=== PATIENT | female | born 2000 | race African-American/Black ===

== ENCOUNTER 2021-08-15 09:46 | Inpatient (IN) | payer OTHER, SELFPAY ==
[2021-08-15] VITALS (7 sets, daily range): BP systolic 113–125; BP diastolic 51–67; PULSE 82–91; RESP 18–20; TEMP 37.4–39.6; O2SAT 97–100; BMI 17.6
--- NOTE | ~2021-08-15 | US_ITS ---
EXAMINATION: US ABDOMEN COMPLETE CLINICAL INFORMATION: Right upper quadrant pain.. COMPARISON: CT abdomen 08/15/2021 TECHNIQUE: Real-time imaging of the abdominal viscera. FINDINGS: PANCREAS: The visualized head and body of the pancreas appears unremarkable. Remainder of the pancreas is obscured by bowel gas. ABDOMINAL AORTA: The proximal, mid, and distal segments are normal in caliber. INFERIOR VENA CAVA: Visualized portions are normal. LIVER: Normal. The liver is normal in size. The liver contour is normal. Parenchymal echogenicity is normal. No focal hepatic lesion. There is no intrahepatic biliary duct dilatation seen. GALLBLADDER: Normal. The gallbladder is physiologically distended without evidence of stones, sludge, polyps, wall thickening or pericholecystic fluid. COMMON BILE DUCT: Normal in caliber measuring 0.2 cm in diameter. RIGHT KIDNEY: Normal. No hydronephrosis. No renal calculi or focal parenchymal lesions. The kidney measures 11 cm in maximum dimension. LEFT KIDNEY: Normal. No hydronephrosis. No renal calculi or focal parenchymal lesions. The kidney measures 12 cm in maximum dimension. SPLEEN: Normal. The spleen measures 11.1 cm in maximum dimension. FREE FLUID: None. US/US abdomen complete IMPRESSION: Unremarkable abdominal ultrasound. No acute findings demonstrated by ultrasound.
--- NOTE | ~2021-08-15 | CT_ITS ---
EXAMINATION: CT ABDOMEN AND PELVIS WITHOUT CONTRAST CLINICAL INFORMATION: Right upper and lower quadrant pain, CVA tenderness, nausea and fever COMPARISON: None TECHNIQUE: Multidetector volumetric imaging was performed from the superior aspect of the liver through the pubic symphysis. Sagittal and coronal reformatted images were obtained on the technologist's workstation. This CT examination was performed using dose optimization techniques as appropriate, variously including the following: *Automated exposure control *Adjustment of mA and/or kV according to patient size (this includes techniques or standardized protocols for targeted exams where dose is matched to indication/reason for exam; i.e. extremities or head) *Use of iterative reconstruction technique DLP: 357 mGy-cm FINDINGS: LUNG BASES: The visualized lung bases are clear. There is pectus deformity of the chest. There is a small amount of fluid at the right cardiophrenic angle questionable for a small pericardial effusion or pericardial cyst. LIVER, GALLBLADDER, AND BILIARY TREE: The liver is normal in size, shape, and attenuation. No focal hepatic lesion or biliary ductal dilatation is present. The gallbladder is unremarkable with no evidence of radiopaque gallstones, gallbladder wall thickening, or obvious pericholecystic inflammatory changes. PANCREAS: Unremarkable. SPLEEN: Unremarkable. ADRENAL GLANDS: Unremarkable. KIDNEYS AND URETERS: The kidneys are normal in size, shape, and attenuation. No hydronephrosis, hydroureter, or calculi seen. No perinephric stranding. There are small bilateral pelvic calcifications probably representing calcified phleboliths. BLADDER: Not optimally distended. GASTROINTESTINAL TRACT: The small and large bowel are unremarkable. The cecum is located low in the pelvis. The appendix is not identified with certainty. The stomach is normal. ABDOMINAL WALL: No significant hernia is appreciated. LYMPH NODES: Normal. VASCULAR: Unremarkable. PELVIC VISCERA: There is a small amount of fluid in the pelvis. The uterus and adnexa are unremarkable. OSSEOUS STRUCTURES: Unremarkable. CT/CT abdomen pelvis wo con IMPRESSION: Normal noncontrast appearance of the kidneys. No stone or hydronephrosis is seen. Small amount of fluid in the pelvis. The cecum is located low in the pelvis. The appendix is not identified with certainty. Pectus deformity of the chest and question small pericardial effusion versus pericardial cyst. Fleischner guidelines were followed.
--- NOTE | 2021-08-15 11:08 | ED_ITS ---
HPI - Abdominal Pain General Chief Complaint: Abdominal Pain Stated Complaint: abd pain Time Seen by Provider: 08/15/21 10:30 Source: patient Mode of arrival: ambulatory History of Present Illness HPI narrative: 21-year-old female with no significant past medical history presenting to the ED complaining of right-sided abdominal pain radiating to right flank x5 days. Reports pain is constant with associated nausea and low-grade fever 99.7. Patient was evaluated at [facility] [employer] sent to ED for evaluation. Denies vomiting, diarrhea, dysuria/hematuria, vaginal bleeding/discharge, cough MD elicited complaint: abdominal pain and flank pain Onset (ago): day(s) Related Data Allergies Allergy/AdvReac Type Severity Reaction Status Date / Time No Known Allergies Allergy Verified 08/15/21 10:49 Review of Systems Review of Systems Constitutional: + Fever, No Chills, No Fatigue, No Malaise ENT/Mouth: No Ear Pain, No Nasal Congestion, No sore throat, No Rhinorrhea, No Swallowing Difficulty Eyes: No Eye Pain, No Swelling, No Redness Cardiovascular: No Chest Pain, No SOB, No Dyspnea on Exertion, No Orthopnea, No Edema, No Palpitations Respiratory: No Cough, No Sputum, No Dyspnea Gastrointestinal: + Nausea, No Vomiting, No Diarrhea, No Constipation, + Abdominal pain Genitourinary: No irregular bleeding, No Dysuria, No Urinary Frequency, No Hemat uria, No Urgency, + Flank Pain, No Urinary Flow Changes, No Hesitancy Musculoskeletal: No joint pain, No Myalgias, No Joint Swelling Skin: No Skin Lesions, No rash Neuro: No Weakness, No Dizziness, No Headache Yes all other systems are reviewed and are negative [facility] Past Medical History Attestation statement: The following information was validated with the patient. Social History Social History Alcohol intake: never Patient Tobacco Use Status: Current everyday Tobacco user Use of substances other than those prescribed or required for medical reasons: No Advance Directives: No Advance Directives Information Provided: No Physical Exam ED Vital Signs: Vital Signs - 24 hr 08/15/21 10:45 08/15/21 10:51 08/15/21 11:10 Temperature 99.7 F 103.2 F H Pulse Rate 91 Respiratory Rate 18 Blood Pressure 122/67 Pulse Oximetry 100 08/15/21 11:55 08/15/21 16:10 Temperature 101.7 F H 99.3 F Pulse Rate 89 82 Respiratory Rate 18 18 Blood Pressure 125/67 117/51 L Pulse Oximetry 98 100 BMI result Body Mass Index 17.6 Const General: cooperative, healthy appearing and no acute distress Orientation/consciousness: patient oriented x3 Limitations: no limitations HENMT Head: Yes normal to inspection and Yes atraumatic Ears: hearing grossly normal bilaterally General nose exam: Normal external nose present Face and sinus: Yes normal facial exam Eyes General: appearance normal, both eyes and all related structures EOM: EOMs intact bilaterally Neck Neck: Yes normal visual inspection and Yes no meningeal signs Resp Effort & Inspection: normal respiratory effort and no respiratory distress Auscultation: clear to auscultation bilaterally, no rales, no rhonchi and no wheezes Cardio Rate: regular rate Heart sounds: S1 normal heart sound present and S2 normal heart sound present GI Inspection: Yes normal to inspection Palpation (GI): Soft to palpation, Tenderness to palpation present (GI) in the RLQ and in the RUQ; Negative for with no rebound tenderness, no guarding and not rigid General: Yes CVA tenderness on the right Back/Spine/Pelvis Back: CVA tenderness Skin Rashes: no rashes Wounds: no wounds Neuro General: patient oriented x3, tone normal and no meningeal signs Gait exam (Neuro): Normal gait present Extrem General: Yes normal to inspection Course Course Course Narrative: -1121--patient of increasingly febrile to 103.2 > IV Toradol ordered -1133--leukocytosis of 13.2 with left shift > empiric Zosyn ordered -1507--UA infected CT abdomen pelvis wo con IMPRESSION: Normal noncontrast appearance of the kidneys. No stone or hydronephrosis is seen. Small amount of fluid in the pelvis. The cecum is located low in the pelvis.? The appendix is not identified with certainty. Pectus deformity of the chest and question small pericardial effusion versus pericardial cyst. ? Fleischner guidelines were followed. >> on re-evaluation patient reports mild symptomatic improvement after medications given. Due to heart rate, fever, and UTI patient meets SIRS plan to admit for further management. Likely pyelo MDM - Abdominal Pain MDM Narrative Medical decision making narrative: 21-year-old female with no significant past medical history presenting to the ED complaining of right-sided abdominal pain radiating to right flank x5 days. On exam low-grade temp 99.7 degrees, NAD, abdomen soft with RUQ/RLQ and R CVA tenderness, no rebound or guarding. Concern for cholecystitis/lithiasis vs pancreatitis vs appendicitis vs UTI/pyelo or renal stone. Lower concern for diverticulitis Plan: Labs, UA, , CT abdomen/pelvis, IVF, symptomatic treatment, re- evaluation Differential Diagnosis Differential diagnosis: Likely abdominal pain, acute appendicitis, diverticulitis, gastroenteritis and pancreatitis Medical Records Attestation: I reviewed the patient's medical records. Lab Data Attestation: I reviewed the patient's lab results. Result diagrams: 08/15/21 11:08 08/15/21 11:08 Labs: Lab Results 08/15/21 08/15/21 08/15/21 Range/Units 11:08 11:08 11:08 WBC 13.2 H (4.8-10.8) X10*3/uL RBC 4.30 (4.20-5.50) X10*6/uL Hgb 12.8 (12.0-16.0) g/dl Hct 38.2 (37.0-47.0) % MCV 88.8 (80.0-98.0) fL MCH 29.8 (27.0-33.0) pg MCHC 33.5 (31.0-35.0) g/dl RDW 14.2 (11.0-16.0) % Plt Count 195 (160-400) X10*3/uL MPV 9.1 L (9.4-12.3) fL Immature Gran % (Auto) 0.4 (0.0-0.4) % Neut % (Auto) 87.5 H (45-73) % Lymph % (Auto) 3.9 L (20-40) % Bond % (Auto) 8.0 (2-11) % Eos % (Auto) 0.0 (0-4) % Baso % (Auto) 0.2 (0-2) % Lymph # (Auto) 0.5 L (1.2-4.9) X10*3/uL Bond # (Auto) 1.1 (0.1-1.2) X10*3/uL Eos # (Auto) 0.0 (0.0-0.4) X10*3/uL Baso # (Auto) 0.0 (0.0-0.2) X10*3/uL Abs Immat Gran (auto) 0.05 H (0.00-0.03) X10*3/uL Absolute Neuts (auto) 11.6 H (2.0-8.3) x10*3/uL Absolute Nucleated RBC 0.000 (0.0-0.012) X10*3/uL Nucleated RBC % (auto) 0.0 (0.0-0.2) /100WBC Sodium 136 (135-145) mmol/L Potassium 3.6 (3.3-5.1) mmol/L Chloride 105 (96-108) mmol/L Carbon Dioxide 25 (22-29) mmol/L Anion Gap 10 L (12-20) BUN 9 (9-16) mg/dL Creatinine 0.78 (0.5-1.4) mg/dL Estim Creat Clear Calc 93.9 Estimated GFR > 60 Random Glucose 110 (60-115) mg/dL Lactic Acid 0.8 (0.5-2.0) mmol/L Calcium 9.1 (8.4-10.2) mg/dL Magnesium 1.7 (1.6-2.6) mg/dL Total Bilirubin 0.8 (0.0-1.0) mg/dL Direct Bilirubin 0.3 (0.0-0.5) mg/dL AST 25 (5-31) U/L ALT 17 (0-31) U/L Alkaline Phosphatase 59 (39-117) U/L Total Protein 6.5 (6.5-8.0) g/dL Albumin 3.9 (3.5-5.0) g/dL Lipase 9 (8-78) U/L Urine Color Urine Appearance Urine pH (5.0-8.0) Ur Specific [place] (1.005-1.025) Urine Protein (NEG-TRACE) MG/DL Urine Glucose (UA) (NEG) MG/DL Urine Ketones (NEG) MG/DL Urine Blood (NEG) Urine Nitrite (NEG) Ur Leukocyte Esterase (NEG) Urine RBC (0) /HPF Urine WBC (0-4) /HPF Ur Squamous Epith Cells /LPF Urine Bacteria /LPF Urine Mucus /LPF Urine Test (NEGATIVE) 08/15/21 08/15/21 Range/Units 13:14 13:14 WBC (4.8-10.8) X10*3/uL RBC (4.20-5.50) X10*6/uL Hgb (12.0-16.0) g/dl Hct (37.0-47.0) % MCV (80.0-98.0) fL MCH (27.0-33.0) pg MCHC (31.0-35.0) g/dl RDW (11.0-16.0) % Plt Count (160-400) X10*3/uL MPV (9.4-12.3) fL Immature Gran % (Auto) (0.0-0.4) % Neut % (Auto) (45-73) % Lymph % (Auto) (20-40) % Bond % (Auto) (2-11) % Eos % (Auto) (0-4) % Baso % (Auto) (0-2) % Lymph # (Auto) (1.2-4.9) X10*3/uL Bond # (Auto) (0.1-1.2) X10*3/uL Eos # (Auto) (0.0-0.4) X10*3/uL Baso # (Auto) (0.0-0.2) X10*3/uL Abs Immat Gran (auto) (0.00-0.03) X10*3/uL Absolute Neuts (auto) (2.0-8.3) x10*3/uL Absolute Nucleated RBC (0.0-0.012) X10*3/uL Nucleated RBC % (auto) (0.0-0.2) /100WBC Sodium (135-145) mmol/L Potassium (3.3-5.1) mmol/L Chloride (96-108) mmol/L Carbon Dioxide (22-29) mmol/L Anion Gap (12-20) BUN (9-16) mg/dL Creatinine (0.5-1.4) mg/dL Estim Creat Clear Calc Estimated GFR Random Glucose (60-115) mg/dL Lactic Acid (0.5-2.0) mmol/L Calcium (8.4-10.2) mg/dL Magnesium (1.6-2.6) mg/dL Total Bilirubin (0.0-1.0) mg/dL Direct Bilirubin (0.0-0.5) mg/dL AST (5-31) U/L ALT (0-31) U/L Alkaline Phosphatase (39-117) U/L Total Protein (6.5-8.0) g/dL Albumin (3.5-5.0) g/dL Lipase (8-78) U/L Urine Color YELLOW Urine Appearance HAZY Urine pH 6.0 (5.0-8.0) Ur Specific [place] 1.020 (1.005-1.025) Urine Protein 2+ H (NEG-TRACE) MG/DL Urine Glucose (UA) NEG (NEG) MG/DL Urine Ketones 15 (NEG) MG/DL Urine Blood 2+ H (NEG) Urine Nitrite POS H (NEG) Ur Leukocyte Esterase 3+ H (NEG) Urine RBC 0-2 (0) /HPF Urine WBC TNTC H (0-4) /HPF Ur Squamous Epith Cells TRACE /LPF Urine Bacteria 1+ /LPF Urine Mucus 1+ /LPF Urine Test NEGATIVE (NEGATIVE) Discharge Plan Discharge Clinical Impression: UTI (urinary tract infection), Sepsis Patient Disposition: Admitted As Inpatient
[2021-08-15] MEDS: 0.9 % Sodium Chloride 1,000 ML 999 ML IV ×2 (11:10→16:32)
[2021-08-15] MEDS: ondansetron HCL 4 MG/2 ML VIAL IVPUSH (11:10)
[2021-08-15] MEDS: Famotidine/PF 20 MG/2 ML VIAL IVPUSH (11:10)
--- NOTE | 2021-08-15 11:12 | PC.NURSE ---
abd issoft non tender, moist mm,, temp increasing rapidly. pa aware.
[2021-08-15 11:18] LABS: MANUAL DIFF FLAG NO
[2021-08-15] MEDS: Ketorolac Tromethamine 15 MG/ML VIAL IVPUSH (11:19)
[2021-08-15] MEDS: Magnesium Hydrox/Alum Hydrox 30 ML ORAL.SUSP PO (11:19)
[2021-08-15 11:24] LABS: Basophils Percent Auto 0.2 % (0-2); Hematocrit 38.2 % (37.0-47.0); Hemoglobin 12.8 g/dl (12.0-16.0); Imm Gran Abs Auto 0.05 X10*3/uL (0.00-0.03); Imm Gran Pct Auto 0.4 % (0.0-0.4); Lymphocytes Absolute Auto 0.5 X10*3/uL (1.2-4.9); Lymphocytes Percent Auto 3.9 % (20-40); Mean Corpuscular HGB Conc 33.5 g/dl (31.0-35.0); Mean Corpuscular Hemoglobin 29.8 pg (27.0-33.0); Mean Corpuscular Volume 88.8 fL (80.0-98.0); Mean Platelet Volume 9.1 fL (9.4-12.3); Monocytes Absolute Auto 1.1 X10*3/uL (0.1-1.2); Neutrophils Absolute Auto 11.6 x10*3/uL (2.0-8.3); Neutrophils Percent Auto 87.5 % (45-73); Platelet Count 195 X10*3/uL (160-400); Red Cell Distribution Width 14.2 % (11.0-16.0); White Blood Count 13.2 X10*3/uL (4.8-10.8)
[2021-08-15 11:33] LABS: Lactic Acid 0.8 mmol/L (0.5-2.0)
[2021-08-15 11:37] LABS: Alanine Aminotransferase 17 U/L (0-31); Albumin Level 3.9 g/dL (3.5-5.0); Alkaline Phosphatase 59 U/L (39-117); Anion Gap 10 (12-20); Aspartate Amino Transferase 25 U/L (5-31); Bilirubin Direct 0.3 mg/dL (0.0-0.5); Bilirubin Total 0.8 mg/dL (0.0-1.0); Blood Urea Nitrogen 9 mg/dL (9-16); Calcium 9.1 mg/dL (8.4-10.2); Carbon Dioxide 25 mmol/L (22-29); Chloride 105 mmol/L (96-108); Creatinine Clr Calc Pharmacy 93.9; Estimated Glomerular Filt Rate > 60; Glucose Random 110 mg/dL (60-115); Lipase 9 U/L (8-78); Magnesium 1.7 mg/dL (1.6-2.6); Potassium 3.6 mmol/L (3.3-5.1); Sodium 136 mmol/L (135-145); Total Protein 6.5 g/dL (6.5-8.0)
[2021-08-15] MEDS: Piperacillin Sodium/Tazobactam 3.375 GM in 0.9 % Sodium Chloride 50 ML IV (11:52)
--- NOTE | 2021-08-15 12:00 | PC.NURSE ---
pt reports feeling over all better though pain in flank remains. awaits CT. No active vomiting. no rebound tenderness RLQ
[2021-08-15] MEDS: Acetaminophen 325 MG TABLET 650 MG PO ×2 (12:48→20:50)
[2021-08-15 13:23] LABS: Appearance Urine HAZY; Color Urine YELLOW; Glucose Urine UA NEG (NEG); Leukocyte Esterase Urine 3+ (NEG); Nitrite Urine POS (NEG); UACC Culture Trigger YES; Urine Blood 2+ (NEG); Urine Ketones 15 MG/DL (NEG); Urine Protein 2+ MG/DL (NEG-TRACE)
[2021-08-15 13:25] LABS: UPreg QC Valid YES; Urine Pregnancy NEGATIVE (NEGATIVE)
[2021-08-15 13:39] LABS: Mucus Urine 1+ /LPF; Squamous Epithelial Cell Urine TRACE /LPF; WBC Urine TNTC /HPF (0-4)
[2021-08-15 13:40] LABS: Bacteria Urine 1+ /LPF; RBC Urine 0-2 /HPF (0)
--- NOTE | 2021-08-15 16:37 | PM.IMHP ---
History of Present Illness Date of Service: 08/15/21 Chief Complaint: abd pain 21-year-old woman presented to the ER with complaints of right upper and lower abdominal pain radiating to right flank with associated nausea, fever and chills. She reports her symptoms started on Saturday but worsened on Saturday and Saturday. She denied any recent illness, recent travel, dysuria or hematuria. She has no other significant medical problems. Her urinalysis was positive, hemodynamically stable, white blood cell count of 13.2. Abdominal CT was negative for any acute abnormality however there was a question of possible pericardial effusion. Patient be admitted for further management and treatment of acute pericarditis. Review of Systems Review of Systems: Denies any recent fever chills or decrease in appetite respiratory denies any shortness of breath coverage production cardiovascular Denies chest pain gastrointestinal denies any dysphagia abdominal pain nausea vomiting or diarrhea genitourinary see HPI musculoskeletal see HPI neuropsych denies any weakness or seizures all other systems reviewed are negative [facility] Social History Alcohol intake: never Patient Tobacco Use Status: Current everyday Tobacco user Use of substances other than those prescribed or required for medical reasons: No Advance Directives: No Advance Directives Information Provided: No Meds Allergies Allergy/AdvReac Type Severity Reaction Status Date / Time No Known Allergies Allergy Verified 08/15/21 10:49 Active Medications: Current Medications Sodium Chloride (Ns) 1,000 mls @ 999 mls/hr IV .Q1H1M TEODORO Stop: 08/15/21 16:45 Last Admin: 08/15/21 16:32 Dose: 999 mls/hr Documented by: Pharmacy Consult (Consult Rx Perform Med Rec) 1 each MISCELLANE ONCE PRN PRN Reason: Consult order Physical Exam Vital Signs and Narrative: Vital Signs: Last Vital Signs Temp 99.3 F 08/15/21 16:10 Pulse 82 08/15/21 16:10 Resp 18 08/15/21 16:10 BP 117/51 L 08/15/21 16:10 Pulse Ox 100 08/15/21 16:10 BMI result Body Mass Index 17.6 Appearing in no acute distress head is normocephalic atraumatic eyes pupils are PERRLA sclera is anicteric mouth throat mucous membranes are intact and moist neck is supple no lymphadenopathy, no JVD noted lung sounds are clear to auscultation heart regular rate rhythm, clear S1, S2 positive bowel sounds, abdomen is soft, nontender neuro patient is alert x3, no focal deficits No CVA tenderness Results Labs CBC and Chem 7: 08/15/21 11:08 08/15/21 11:08 Labs: Laboratory Results - last 24 hr 08/15/21 08/15/21 08/15/21 11:08 11:08 11:08 MCV 88.8 MCH 29.8 MCHC 33.5 RDW 14.2 Plt Count 195 MPV 9.1 L Immature Gran % (Auto) 0.4 Neut % (Auto) 87.5 H Lymph % (Auto) 3.9 L [place] % (Auto) 8.0 Eos % (Auto) 0.0 Baso % (Auto) 0.2 Lymph # (Auto) 0.5 L [place] # (Auto) 1.1 Eos # (Auto) 0.0 Baso # (Auto) 0.0 Abs Immat Gran (auto) 0.05 H Absolute Neuts (auto) 11.6 H Absolute Nucleated RBC 0.000 Nucleated RBC % (auto) 0.0 Anion Gap 10 L Estim Creat Clear Calc 93.9 Estimated GFR > 60 Random Glucose 110 Lactic Acid 0.8 Calcium 9.1 Magnesium 1.7 Total Bilirubin 0.8 Direct Bilirubin 0.3 AST 25 ALT 17 Alkaline Phosphatase 59 Total Protein 6.5 Albumin 3.9 Lipase 9 Urine Color Urine Appearance Urine pH Ur Specific [place] Urine Protein Urine Glucose (UA) Urine Ketones Urine Blood Urine Nitrite Ur Leukocyte Esterase Urine RBC Urine WBC Ur Squamous Epith Cells Urine Bacteria Urine Mucus Urine Test 08/15/21 08/15/21 13:14 13:14 MCV MCH MCHC RDW Plt Count MPV Immature Gran % (Auto) Neut % (Auto) Lymph % (Auto) [place] % (Auto) Eos % (Auto) Baso % (Auto) Lymph # (Auto) [place] # (Auto) Eos # (Auto) Baso # (Auto) Abs Immat Gran (auto) Absolute Neuts (auto) Absolute Nucleated RBC Nucleated RBC % (auto) Anion Gap Estim Creat Clear Calc Estimated GFR Random Glucose Lactic Acid Calcium Magnesium Total Bilirubin Direct Bilirubin AST ALT Alkaline Phosphatase Total Protein Albumin Lipase Urine Color YELLOW Urine Appearance HAZY Urine pH 6.0 Ur Specific [place] 1.020 Urine Protein 2+ H Urine Glucose (UA) NEG Urine Ketones 15 Urine Blood 2+ H Urine Nitrite POS H Ur Leukocyte Esterase 3+ H Urine RBC 0-2 Urine WBC TNTC H Ur Squamous Epith Cells TRACE Urine Bacteria 1+ Urine Mucus 1+ Urine Test NEGATIVE Imaging Radiologist's Impressions: Impressions Abdomen/Pelvis CT 08/15/21 14:17 IMPRESSION: Normal noncontrast appearance of the kidneys. No stone or hydronephrosis is seen. Small amount of fluid in the pelvis. The cecum is located low in the pelvis. The appendix is not identified with certainty. Pectus deformity of the chest and question small pericardial effusion versus pericardial cyst. Fleischner guidelines were followed. Assessment and Plan (1) UTI (urinary tract infection): Status: Acute Plan 21-year-old woman admitted with sepsis secondary to pyelonephritis Sepsis secondary to pyelonephritis Start Rocephin Follow blood cultures IV fluids Supportive care No other significant medical problems DVT prophylaxis low risk early ambulation Attending Dr. Morris Full code Quality Stroke Does the patient have a stroke diagnosis?: No VTE Prior VTE?: No VTE Risk Level:: Medical - low VTE Device Contraindication: Treatment Not Indicated VTE Drug Contraindication: Treatment Not Indicated
--- NOTE | 2021-08-15 16:55 | PHA.MEDREC ---
MED REC COMPLETE, NO ISSUE Pharmacy Consult ? Medication Reconciliation Pharmacy has completed the medication reconciliation.
[2021-08-15 17:12] LABS: COVID-19 Test Negative (Negative); IDNOW Serial# 16C4AD1C
[2021-08-15] MEDS: cefTRIAXone sodium 1 GM in 0.9 % Sodium Chloride 50 ML IV (17:59)
[2021-08-15 22:23] LABS: Amphetamine Screen Urine Not Detected (Not Detect); Barbiturates, Urine Not Detected (Not Detect); Benzodiazepines Screen Urine Not Detected (Not Detect); Cannabinoid Screen Urine POSITIVE (Not Detect); Cocaine Screen Urine Not Detected (Not Detect); Fentanyl, urine Not Detected (Not Detect); Opiate Screen Urine Not Detected (Not Detect); Phencyclidine Screen Urine Not Detected (Not Detect)
--- NOTE | 2021-08-15 22:55 | MHC.CM.PN ---
CM met with admitted patient with bed assignment pending. A&Ox4. PCP Perri [facility]. HCP reviewed, completed and signed. Copies given Uploaded into [employer] and [facility] [employer]. HCP/mother Veda Gerber ([phone]). J&J only. No booster. Lives with roommate. Corrected address: [address] [place] [address]. [id number]. Employed. No DME/services. D/C plan: Home without services. Pt will drive herself home.
[2021-08-16] VITALS (9 sets, daily range): BP systolic 102–133; BP diastolic 40–68; PULSE 70–87; RESP 16–20; TEMP 36.6–38.2; O2SAT 98–100
[2021-08-16] MEDS: 0.9 % Sodium Chloride Flush 3 ML SYRINGE IVFLUSH ×2 (04:23→10:13)
[2021-08-16] MEDS: Acetaminophen 325 MG TABLET 650 MG PO ×3 (04:23→16:42)
[2021-08-16 04:59] LABS: MANUAL DIFF FLAG NO
--- NOTE | 2021-08-16 05:05 | PC.NURSE ---
Pt has been lying supine in bed perfectly still, per the directions from this RN post LP. Myself and another staff member were standing outside of the pt's room and overheard the pt self dialoguing, speaking about being in the shower and smelling blood and babies and it stinks, it just stinks . Provider notified. This RN requested something to help the pt get some sleep.
[2021-08-16 05:10] LABS: Basophils Percent Auto 0.1 % (0-2); Hematocrit 34.1 % (37.0-47.0); Hemoglobin 11.7 g/dl (12.0-16.0); Imm Gran Abs Auto 0.08 X10*3/uL (0.00-0.03); Imm Gran Pct Auto 0.5 % (0.0-0.4); Lymphocytes Absolute Auto 0.6 X10*3/uL (1.2-4.9); Lymphocytes Percent Auto 4.1 % (20-40); Mean Corpuscular HGB Conc 34.3 g/dl (31.0-35.0); Mean Corpuscular Hemoglobin 29.8 pg (27.0-33.0); Mean Corpuscular Volume 86.8 fL (80.0-98.0); Mean Platelet Volume 8.7 fL (9.4-12.3); Monocytes Absolute Auto 1.5 X10*3/uL (0.1-1.2); Neutrophils Absolute Auto 12.4 x10*3/uL (2.0-8.3); Neutrophils Percent Auto 85.3 % (45-73); Platelet Count 153 X10*3/uL (160-400); Red Blood Count 3.93 X10*6/uL (4.20-5.50); Red Cell Distribution Width 13.7 % (11.0-16.0); White Blood Count 14.6 X10*3/uL (4.8-10.8)
[2021-08-16 05:24] LABS: Anion Gap 9 (12-20); Blood Urea Nitrogen 7 mg/dL (9-16); Carbon Dioxide 26 mmol/L (22-29); Chloride 104 mmol/L (96-108); Creatinine Clr Calc Pharmacy 95.1; Estimated Glomerular Filt Rate > 60; Glucose Random 130 mg/dL (60-115); Potassium 3.3 mmol/L (3.3-5.1); Sodium 136 mmol/L (135-145)
[2021-08-16 05:51] LABS: Calcium 8.2 mg/dL (8.4-10.2)
[2021-08-16] MEDS: 0.9 % Sodium Chloride 1,000 ML 125 ML IVCONT ×2 (10:12→16:43)
--- NOTE | 2021-08-16 10:16 | PC.NURSE ---
NS started at 125ml/hr. Pain 6/10 on rest per pt. Tmp 100.2, pt encouraged to remove additional blankets. awaits tx to floor
--- NOTE | 2021-08-16 10:24 | PC.NURSE ---
Tylenol given for fever control
--- NOTE | 2021-08-16 13:07 | P.PNIM_ITS ---
Subjective Subjective Date of Service: 08/16/21 <Crista Lan NP - Last Filed: 08/16/21 15:24> 08/23/21 <Bryson Richter MD - Last Filed: 08/23/21 08:29> Review of Systems Follow up pyelonephritis Still with right upper and lower abd pain no nausea or vomiting <Crista Lan NP - Last Filed: 08/16/21 15:24> Physical Exam Vital Signs: Vital Signs: Last Vital Signs Temp 100.1 F 08/16/21 12:00 Pulse 71 08/16/21 12:00 Resp 16 08/16/21 12:00 BP 116/64 08/16/21 12:00 Pulse Ox 99 08/16/21 12:00 BMI result Body Mass Index 17.6 <Crista Lan NP - Last Filed: 08/16/21 15:24> Appearing in no acute distress lung sounds are clear to auscultation heart regular rate rhythm, clear S1, S2 positive bowel sounds, R upper and and lower abd pain neuro patient is alert x3, no focal deficits <Crista Lan NP - Last Filed: 08/16/21 15:24> Objective Data Active Medications Acetaminophen (Acetaminophen 325 Mg Tablet) 650 mg PO Q6H PRN PRN Reason: Pain, Mild (Pain Scale 1-3) Last Admin: 08/16/21 10:23 Dose: 650 mg Documented by: PIPPA Ceftriaxone Sodium 1 gm/ (Sodium Chloride) 50 mls @ 100 mls/hr IV Q24H [facility] Last Infusion: 08/15/21 20:47 Dose: 0 mls/hr Documented by: JUSTO Sodium Chloride (Ns) 1,000 mls @ 125 mls/hr IVCONT .Q8H [facility] Last Admin: 08/16/21 10:12 Dose: 125 mls/hr Documented by: PIPPA Ondansetron HCl (Ondansetron Hcl 4 Mg/2 Ml Vial) 4 mg IVPUSH Q8H PRN PRN Reason: Nausea and Vomiting Pharmacy Consult (Consult Rx Perform Med Rec) 1 each MISCELLANE ONCE PRN PRN Reason: Consult order Sodium Chloride (0.9 % Sodium Chloride Flush 3 Ml Syringe) 3 ml IVFLUSH QSHIFT [facility] Last Admin: 08/16/21 10:13 Dose: 3 ml Documented by: PIPPA <Crista Lan NP - Last Filed: 08/16/21 15:24> Labs CBC & Chem 7: : 08/17/21 05:51 08/17/21 05:51 <Crista Lan NP - Last Filed: 08/16/21 15:24> Labs: Laboratory Results - last 24 hr 08/15/21 08/15/21 08/15/21 13:14 13:14 16:42 MCV MCH MCHC RDW Plt Count MPV Immature Gran % (Auto) Neut % (Auto) Lymph % (Auto) [place] % (Auto) Eos % (Auto) Baso % (Auto) Lymph # (Auto) [place] # (Auto) Eos # (Auto) Baso # (Auto) Abs Immat Gran (auto) Absolute Neuts (auto) Absolute Nucleated RBC Nucleated RBC % (auto) Anion Gap Estim Creat Clear Calc Estimated GFR Random Glucose Calcium Urine Color YELLOW Urine Appearance HAZY Urine pH 6.0 Ur Specific [place] 1.020 Urine Protein 2+ H Urine Glucose (UA) NEG Urine Ketones 15 Urine Blood 2+ H Urine Nitrite POS H Ur Leukocyte Esterase 3+ H Urine RBC 0-2 Urine WBC TNTC H Ur Squamous Epith Cells TRACE Urine Bacteria 1+ Urine Mucus 1+ Urine Test NEGATIVE Urine Opiates Screen Urine Fentanyl Screen Ur Barbiturates Screen Ur Phencyclidine Scrn Ur Amphetamines Screen U Benzodiazepines Scrn Urine Cocaine Screen U Marijuana (THC) Screen COVID-19 (JERO) Negative COVID-19 Clin Com See Note 08/15/21 08/16/21 08/16/21 22:03 04:54 04:54 MCV 86.8 MCH 29.8 MCHC 34.3 RDW 13.7 Plt Count 153 L MPV 8.7 L Immature Gran % (Auto) 0.5 H Neut % (Auto) 85.3 H Lymph % (Auto) 4.1 L [place] % (Auto) 10.0 Eos % (Auto) 0.0 Baso % (Auto) 0.1 Lymph # (Auto) 0.6 L [place] # (Auto) 1.5 H Eos # (Auto) 0.0 Baso # (Auto) 0.0 Abs Immat Gran (auto) 0.08 H Absolute Neuts (auto) 12.4 H Absolute Nucleated RBC 0.000 Nucleated RBC % (auto) 0.0 Anion Gap 9 L Estim Creat Clear Calc 95.1 Estimated GFR > 60 Random Glucose 130 H Calcium 8.2 L D Urine Color Urine Appearance Urine pH Ur Specific [place] Urine Protein Urine Glucose (UA) Urine Ketones Urine Blood Urine Nitrite Ur Leukocyte Esterase Urine RBC Urine WBC Ur Squamous Epith Cells Urine Bacteria Urine Mucus Urine Test Urine Opiates Screen Not Detected Urine Fentanyl Screen Not Detected Ur Barbiturates Screen Not Detected Ur Phencyclidine Scrn Not Detected Ur Amphetamines Screen Not Detected U Benzodiazepines Scrn Not Detected Urine Cocaine Screen Not Detected U Marijuana (THC) Screen POSITIVE H COVID-19 (JERO) COVID-19 Clin Com <Crista Lan NP - Last Filed: 08/16/21 15:24> Microbiology Microbiology Results: Microbiology 08/15/21 00:00 Urine Culture - Preliminary Urine clean catch - Urine carmichael top Gram negative yisel <Crista Lan NP - Last Filed: 08/16/21 15:24> Assessment and Plan Plan 21-year-old woman admitted with sepsis secondary to pyelonephritis Sepsis secondary to GNR pyelonephritis Still with RU and RL abd pain, abd us pending Continue Rocephin GNR blood cultures await final IV fluids Supportive care No other significant medical problems DVT prophylaxis low risk early ambulation Attending Dr. Richter Full code <Crista Lan NP - Last Filed: 08/16/21 15:24> Quality Stroke Does the patient have a stroke diagnosis?: No <Crista Lan NP - Last Filed: 08/16/21 15:24> VTE Prior VTE?: No <Crista Lan NP - Last Filed: 08/16/21 15:24> VTE Risk Level:: Medical - low <Crista Lan NP - Last Filed: 08/16/21 15:24> VTE Device Contraindication: Treatment Not Indicated <Crista Lan NP - Last Filed: 08/16/21 15:2 4> VTE Drug Contraindication: Treatment Not Indicated <Crista Lan NP - Last Filed: 08/16/21 15:24>
[2021-08-16] MEDS: cefTRIAXone sodium 1 GM in 0.9 % Sodium Chloride 50 ML IV (17:40)
[2021-08-17] MEDS: 0.9 % Sodium Chloride 1,000 ML 125 ML IVCONT ×2 (01:42→10:47)
[2021-08-17 03:33] VITALS: BP 121/63; PULSE 78; RESP 18; TEMP 37; O2SAT 98
[2021-08-17 06:39] LABS: Hematocrit 34.7 % (37.0-47.0); Hemoglobin 11.7 g/dl (12.0-16.0); Mean Corpuscular HGB Conc 33.7 g/dl (31.0-35.0); Mean Corpuscular Hemoglobin 29.3 pg (27.0-33.0); Mean Corpuscular Volume 86.8 fL (80.0-98.0); Mean Platelet Volume 8.9 fL (9.4-12.3); Platelet Count 161 X10*3/uL (160-400); Red Cell Distribution Width 13.6 % (11.0-16.0); White Blood Count 11.1 X10*3/uL (4.8-10.8)
[2021-08-17 07:23] LABS: Anion Gap 9 (12-20); Blood Urea Nitrogen 6 mg/dL (9-16); Calcium 8.2 mg/dL (8.4-10.2); Carbon Dioxide 29 mmol/L (22-29); Chloride 106 mmol/L (96-108); Estimated Glomerular Filt Rate > 60; Glucose Random 96 mg/dL (60-115); Potassium 3.7 mmol/L (3.3-5.1); Sodium 139 mmol/L (135-145)
[2021-08-17 07:37] VITALS: BP 139/73; PULSE 73; RESP 16; TEMP 37.6; O2SAT 99
[2021-08-17] MEDS: Acetaminophen 325 MG TABLET 650 MG PO (07:49)
[2021-08-17] MEDS: oxyCODONE HCl Immed Release 5 MG TABLET PO (08:07)
[2021-08-17 11:29] VITALS: BP 115/62; PULSE 72; RESP 17; TEMP 36.9; O2SAT 100
[2021-08-17 14:34] VITALS: BMI 17.6
--- NOTE | 2021-08-17 14:36 | PM.DS ---
DS: Providers Provider Date of Service: 08/17/21 Date of admission: 08/15/21 16:42 Date of discharge: 08/17/21 Primary care physician: Unknown Physician Attending physician on discharge: Bryson Richter Discharging clinician: Tiffany Babb DS: Diagnosis Discharge Diagnosis (1) Pyelonephritis: Status: Acute (2) Sepsis: Status: Acute DS: Summary Hospital Course Hospital Course: From H&P on day of admission: 21-year-old woman presented to the ER with complaints of right upper and lower abdominal pain radiating to right flank with associated nausea, fever and chills. She reports her symptoms started on Saturday but worsened on Saturday and Saturday. She denied any recent illness, recent travel, dysuria or hematuria. She has no other significant medical problems. Her urinalysis was positive, hemodynamically stable, white blood cell count of 13.2. Abdominal CT was negative for any acute abnormality however there was a question of possible pericardial effusion. Patient be admitted for further management and treatment of acute pyelonephritis Pyelonephritis: patient was started on IV ceftriaxone. Urine culture grew E coli. 1/2 blood cultures grew Gram-negative rods. The final sensitivities of the blood cultures have not returned however are likely the same as the E coli growing her urine. She will be discharged home with 14 days of levofloxacin. Question of pericardial effusion seen on CT scan of the abdomen. Patient denies any chest pain or shortness of breath. Recommend outpatient follow up with PCP. Time Spent with Patient Time attestation: Total time spent providing and/or coordinating discharge services: Discharge coordination time: Greater than 30 minutes Quality: Safe Use of Opioids Does Pt have an Active Cancer Diagnosis on the Problem List?: No Quality: Stroke Does the patient have a stroke diagnosis?: No Physical Exam Vital Signs: Vital Signs: Last Vital Signs Temp 98.4 F 08/17/21 11:29 Pulse 72 08/17/21 11:29 Resp 17 08/17/21 11:29 BP 115/62 08/17/21 11:29 Pulse Ox 100 08/17/21 11:29 BMI result Body Mass Index 17.6 Const: General: cooperative, alert and awake Nutritional Appearance: average body habitus Orientation/consciousness: patient oriented x3 Resp: Effort & Inspection: normal respiratory effort and able to speak in complete sentences GI: Palpation (GI): Soft to palpation and nontender : General: Yes CVA tenderness on the right Back/Spine/Pelvis: Back: CVA tenderness Neuro: General: patient oriented x3 Extrem: General: Yes no pedal edema DS: Data Data Completed and Pending Labs on day of discharge: Laboratory Results - last 24 hr 08/17/21 08/17/21 05:51 05:51 WBC 11.1 H RBC 4.00 L Hgb 11.7 L Hct 34.7 L MCV 86.8 MCH 29.3 MCHC 33.7 RDW 13.6 Plt Count 161 MPV 8.9 L Absolute Nucleated RBC 0.000 Nucleated RBC % (auto) 0.0 Sodium 139 Potassium 3.7 Chloride 106 Carbon Dioxide 29 Anion Gap 9 L BUN 6 L Creatinine 0.66 Estim Creat Clear Calc 111.0 Estimated GFR > 60 Random Glucose 96 Calcium 8.2 L Preliminary micro results at discharge 08/15/21 11:08 Blood Culture - Preliminary Blood - Venous No growth after 48 hours. 08/15/21 11:22 Blood Culture - Preliminary Blood - Venous Gram negative yisel Discharge Plan Discharge Patient Disposition: Home, Self-Care Discharge Diagnosis: Acute pyelonephritis Sepsis Referrals: Physician,Unknown J [Primary Care Provider] - 1 Week Discharge Medications: New levofloxacin 750 mg tablet 750 mg PO DAILY 14 Days Qty: 14 0RF Continued cyproheptadine 4 mg Tablet 4 mg PO DAILY 0RF multivitamin [Daily-Devante] Tablet 1 tab PO DAILY 0RF Discharge Orders: Discharge Order (Routine); Ordered 08/17/21 Ordered By: Tiffany Babb Activity on Discharge: As tolerated Stand Alone Forms: Patient Portal Discharge page Care Plan Goals: see discharge summary Health Concerns: Pyelonephritis Bacteremia Possible small pericardial effusion Plan of Treatment: Complete course of antibiotics as prescribed call to schedule follow up appointment with PCP Assessment: see discharge summary
--- NOTE | 2021-08-17 14:55 | MHC.CM.PN ---
HOME - SELF CARE RN AWARE OF PLAN.
== END 2021-08-17 15:33 | disposition home or self-care (01) | DRG 720 ==
LOC: HO.ED 16:17 → HO.EDOVER 17:51 → HO.S3 08-16 11:05
PROVIDERS: Physician Assistant; Admitting Provider Nurse Practitioner Acute Care; Emergency Provider Emergency Medicine; PCP Physician Assistant Medical; Visit Provider Physician Assistant Medical
DX: A41.9 Sepsis, unspecified organism (principal); N12 Tubulo-interstitial nephritis, not specified as acute or chronic; B96.20 Unspecified Escherichia coli [E. coli] as the cause of diseases classified elsewhere; Z20.822 Contact with and (suspected) exposure to COVID-19; Z79.899 Other long term (current) drug therapy
CPT/HCPCS: 36415; 74176; 76700; 80048; 80076; 80307; 81001; 81025; 83605; 83690; 83735; 85025; 85027; 87040; 87077; 87086; 87088; 87186; 87205; 87635; 96361; 96374; 96375; 99284; 99285; J0696; J1885; J2405; J2543

== ENCOUNTER 2022-09-29 10:04 | Emergency (ER) | payer MEDICAID, SELFPAY ==
[2022-09-29 10:07] VITALS: BP 142/76; PULSE 81; RESP 19; TEMP 36.6; O2SAT 98; BMI 18.2
--- NOTE | 2022-09-29 10:22 | ED.GENADULT ---
HPI - General Adult General Chief complaint: General Medical Stated complaint: sick for 2 weeks Time Seen by Provider: 09/29/22 10:21 Source: patient Mode of arrival: ambulatory Limitations: no limitations History of Present Illness HPI narrative: Patient is a 22-year-old female presenting to the emergency department with complaint of nasal congestion, nonproductive cough, sore throat and headache. States symptoms began approximately 2 weeks ago with nasal congestion, then progressed to nonproductive cough and sore throat, voice became hoarse 1-2 days ago. Patient denies any fevers. Patient denies shortness of breath. Denies chest pain. Patient denies any abdominal pain, nausea, vomiting. Does report intermittent isolated episodes of diarrhea, none today. Denies any sick contacts. Has tried several hzid-iks-ofaequs cold medicines as well as tea with little relief. MD complaint: Cough, nasal congestion, sore throat Onset (ago): day(s) Location: head and chest Radiation: non-radiation Severity: moderate Pain Consistency: intermittent Relieving factors: medication Exacerbating factors: none Associated symptoms: denies other symptoms Treatments prior to arrival: other (OTC cold medicine) Related Data Home Medications Medication Instructions Recorded Confirmed cyproheptadine 4 mg tablet 4 mg PO DAILY 08/15/21 08/15/21 multivitamin (Daily-Devante tablet) 1 tab PO DAILY 08/15/21 08/15/21 Previous Rx's Medication Instructions Recorded levofloxacin 750 mg tablet 750 mg PO DAILY 14 days #14 tabs 08/17/21 azithromycin 250 mg tablet See Rx Instructions PO .COMPLEX #6 09/29/22 (Zithromax Z-Bakari) tabs Allergies Allergy/AdvReac Type Severity Reaction Status Date / Time No Known Allergies Allergy Verified 09/29/22 10:06 Review of Systems Review of Systems: As per HPI. Yes all other systems are reviewed and are negative Constitutional: Constitutional: Reports as per HPI [facility] Social History Social History Household Members: Other Housing: Apartment Do you presently have visiting nurse or other home services: No Alcohol intake: never Patient Tobacco Use Status: Never used Tobacco Substance Use Type: Marijuana Advance Directives: Yes Advance Directives on File: Yes Advance Directives Date on File: 08/16/21 service: No Current occupational status: employed Physical Exam ED Vital Signs: Vital Signs - 24 hr 09/29/22 10:07 Temperature 98 F Pulse Rate 81 Respiratory Rate 19 Blood Pressure 142/76 H Pulse Oximetry 98 BMI result Body Mass Index 18.2 Vital signs have been reviewed and appear to be correct. Blood pressure mildly elevated. Heart rate normal. Respiratory rate normal. Temperature normal. Oxygen saturation normal. Const General: cooperative, healthy appearing and no acute distress Orientation/consciousness: oriented to person, oriented to place, oriented to time and patient oriented x3 Limitations: no limitations HENMT Head: Yes normocephalic and Yes atraumatic Ears: external ears normal, TM's normal bilaterally, EAC's normal and mastoids normal General nose exam: Normal external nose present, Normal nares present, Normal septum present and No nasal discharge present Face and sinus: Yes face symmetric Mouth: Normal oral and palatal mucosa present, oropharynx normal and moist mucous membranes Throat: Yes tonsils normal, Yes uvula midline, Yes posterior oropharynx abnormal (erythema) and No uvular edema Eyes Pupils: Equal, round and reactive pupils present Neck Neck: Yes normal visual inspection and Yes supple Chest Chest palpation & inspection: normal inspection of the chest and normal palpation of entire chest wall Resp Effort & Inspection: normal respiratory effort and able to speak in complete sentences Auscultation: clear to auscultation bilaterally Cardio Rate: regular rate Rhythm: regular rhythm Heart sounds: S1 normal heart sound present and S2 normal heart sound present GI Palpation (GI): Soft to palpation and nontender Auscultation: normoactive bowel sounds General: Yes no CVA tenderness Back/Spine/Pelvis Back: no CVA tenderness Skin General skin exam: elasticity normal and turgor normal Neuro General: oriented to person, oriented to place, oriented to time, patient oriented x3, moves all extremities, no focal motor deficits and CN's II-XI intact bilaterally Cranial nerves: Yes Equal, round and reactive pupils present Cognition (Neuro): normal cognition Extrem General: Yes full ROM, Yes no pedal edema and Yes no calf tenderness Psych Mental Status: mental status grossly normal Affect: normal affect Thought process: Normal thought process present Medical Decision Making Medical Decision Making MDM Narrative: Patient is a 22-year-old female presenting to the emergency department with complaint of nasal congestion, nonproductive cough, sore throat and headache. On exam patient is awake, A+Ox3, BP mildly elevated, VS otherwise WNL, afebrile, normal neurological exam without focal deficits, TMs normal bilaterally, mild erythema of posterior oropharynx, no edema or exudate, no cervical lymphadenopathy, LS CTA, abdomen soft and nontedner. Given reported symptoms and physical exam findings, differential includes viral upper respiratory infection, strep pharyngitis, allergic rhinitis. Unlikely pneumonia, no evidence of peritonsillar abscess or epiglottitis. Plan: swabbed for Covid and strep 11:01 Covid and strep both negative, patient updated on results. Feel symptoms are likely viral, but will prescribe azithromycin as symptoms present for 2 weeks. Instructed patient to follow-up with PCP. Can continue to use OTC cold medication as well as OTC antihistamine. Return precautions discussed at bedside. Patient verbalized understanding of and agreement with plan. Differential Diagnosis Differential Diagnoses: The differential diagnosis associated with the presentation includes strep pharyngitis, viral upper respiratory infection, allergic rhinitis Lab Data MDM Lab Attestation statement: I reviewed the patient's lab results. See above. Labs: Lab Results 09/29/22 09/29/22 Range/Units 10:16 10:16 COVID-19 (JERO) Negative (Negative) COVID-19 Clin Com See Note S. pyogenes GrpA HO Negative (Negative) External Record Review External record reviewed: Inpatient record, Office record and Outpatient record Tests considered The following testing was considered but not selected: Consider chest x-ray however lung sounds clear to auscultation throughout and patient afebrile Prescription Management I considered prescription management with: Antibiotic (azithromycin) Discharge Plan Discharge Clinical Impression: Viral upper respiratory infection Patient Disposition: Home, Self-Care Instructions: Viral Syndrome (ED) Additional Instructions: You were evaluated in the emergency department today for cough, sore throat, and congestion. Your cough is most likely due to a viral illness which will improve on its own with rest and fluids. You are being prescribed azithromycin which is an antibiotic, please complete the full course as prescribed. You can take eaah-pok-jeaneuj medications such as dextromethorphan to help manage your symptoms. You can also try adding an allergy medication such as cetirizine or loratadine. Please schedule an appointment for follow-up with your primary care physician within 2 days. Return to the emergency department if you experience worsening cough, fever 100.4? F or greater, recurrent vomiting, chest pain, shortness of breath, or any other concerning symptoms. Prescriptions: New azithromycin [Zithromax Z-Bakari] 250 mg tablet See Rx Instructions .ROUTE .COMPLEX Qty: 6 0RF Rx Instructions: For 250 mg dose pack: take 500 mg today (day 1), then 250 mg for 4 days (days 2-5) No Action cyproheptadine 4 mg Tablet 4 mg PO DAILY multivitamin [Daily-Devante] Tablet 1 tab PO DAILY levofloxacin 750 mg tablet 750 mg PO DAILY 14 Days Qty: 14 0RF
== END 2022-09-29 11:07 | disposition home or self-care (01) ==
PROVIDERS: Emergency Provider Emergency Medicine Emergency Medical Services
DX: J06.9 Acute upper respiratory infection, unspecified (principal); J02.9 Acute pharyngitis, unspecified; Z20.822 Contact with and (suspected) exposure to COVID-19
CPT/HCPCS: 87635; 87651; 99283

== ENCOUNTER 2023-04-23 01:19 | Emergency (ER) | payer SELFPAY ==
--- NOTE | ~2023-04-23 | XR_ITS ---
EXAMINATION: XR CHEST CLINICAL INFORMATION: Productive cough COMPARISON: None available. TECHNIQUE: 2 views of the chest were obtained. FINDINGS: Lung volumes are symmetric. No focal consolidation is seen. No evidence of pneumothorax, pleural effusion, or pulmonary edema. The cardiomediastinal contour is unremarkable. Pectus excavatum deformity noted. XR/XR chest 2V IMPRESSION: No acute cardiopulmonary findings.
[2023-04-23 01:54] VITALS: BP 138/79; PULSE 97; RESP 18; TEMP 37.7; O2SAT 97; BMI 17.9
--- NOTE | 2023-04-23 02:06 | MHC.EDTECH ---
Patient brought into triage area,Covid,Flu,and a urine sample collected and sent to lab.
[2023-04-23 02:16] LABS: Appearance Urine Cloudy; Color Urine Orange; Glucose Urine UA Negative (Negative); Leukocyte Esterase Urine Small (1+) (Negative); Nitrite Urine Negative (Negative); PH 5.5 (5.0-9.0); Specific Gravity - Urine 1.025 (1.005-1.025); UMIC TRIGGER UACC YES; UPreg QC Valid YES; Urine Blood Large (3+) (Negative); Urine Ketones Trace mg/dL (Negative); Urine Pregnancy NEGATIVE (NEGATIVE); Urine Protein 30 (1+) mg/dL (Neg-Trace)
[2023-04-23 02:22] LABS: Bacteria Urine 4+ (None Seen); Hyaline Casts Urine 0-2 /LPF (0-2); RBC Urine 0-2 /HPF (0-2); Squamous Epithelial Cell Urine >20 /HPF (0-2); UACC Culture Trigger YES
[2023-04-23 02:28] LABS: IDNOW Serial# 08D9AD1C; Influenza A Positive (Negative)
[2023-04-23 02:28] LABS: COVID-19 Test Negative (Negative); IDNOW Serial# 152EDE1D
[2023-04-23 02:31] LABS: Influenza B2 Negative (Negative)
[2023-04-23 04:36] VITALS: BP 135/74; PULSE 89; RESP 17; TEMP 37.6; O2SAT 97
--- NOTE | 2023-04-23 04:49 | ED_ITS ---
HPI - URI/Sore Throat General Chief Complaint: Upper Respiratory Symptoms Stated Complaint: Cough Time Seen by Provider: 04/23/23 04:39 Source: patient Mode of arrival: ambulatory Limitations: no limitations History of Present Illness HPI Narrative: Patient With upper respiratory symptoms for last few days with coughing congested also had some cramps in lower abdomen due for her menstruation no urinary symptoms had low-grade fever running nose congestion Related Data Home Medications Medication Instructions Recorded Confirmed cyproheptadine 4 mg tablet 4 mg PO DAILY 08/15/21 08/15/21 multivitamin (Daily-Devante tablet) 1 tab PO DAILY 08/15/21 08/15/21 Previous Rx's Medication Instructions Recorded levofloxacin 750 mg tablet 750 mg PO DAILY 14 days #14 tabs 08/17/21 azithromycin 250 mg tablet See Rx Instructions PO .COMPLEX #6 09/29/22 (Zithromax Z-Bakari) tabs codeine 10 mg-guaifenesin 100 mg/5 10 ml PO Q6H PRN cough #237 mL 04/23/23 mL oral liquid ibuprofen 600 mg tablet 600 mg PO Q6H PRN fever or pain 04/23/23 #30 tabs Allergies Allergy/AdvReac Type Severity Reaction Status Date / Time No Known Allergies Allergy Verified 09/29/22 10:06 Review of Systems Review of Systems: Yes all other systems are reviewed and are negative [facility] Social History Social History Household Members: Other Housing: Apartment Do you presently have visiting nurse or other home services: No Alcohol intake: never Patient Tobacco Use Status: Never used Tobacco Substance Use Type: Marijuana Advance Directives: Yes Advance Directives on File: Yes Advance Directives Date on File: 08/16/21 service: No Current occupational status: employed Physical Exam Vital Signs: Vital Signs: Last Vital Signs Temp 99.7 F 04/23/23 04:36 Pulse 89 04/23/23 04:36 Resp 17 04/23/23 04:36 BP 135/74 04/23/23 04:36 Pulse Ox 97 04/23/23 04:36 O2 Del Method Room Air 04/23/23 04:36 BMI result Body Mass Index 17.9 Appearance: Alert. Oriented X3. No acute distress. ENT: Pharynx normal. Oral Mucosa moist Neck: Normal inspection. Neck supple. CVS: Normal heart rate and rhythm. Pulses normal. Respiratory: No respiratory distress. Equal air entry bilateral, no wheezing/rales/rhonchi Abdomen: Soft and nontender. Bowel sounds are present, no mass palpable, no CVA tenderness Skin: Skin warm and dry. Normal skin color. Normal skin turgor. Neuro: Oriented X 3. Medications Administered Discontinued Medications Generic Name Dose Route Start Last Admin Trade Name Freq PRN Reason Stop Dose Admin Guaifenesin/Codeine Phosphate 10 ml 04/23/23 04:49 04/23/23 05:22 Guaifen/Codeine Sf 200/20/10ml 10 Ml Liquid PO 04/23/23 04:50 10 ml ONCE ONE Administration Medical Decision Making Lab Data MDM Lab Attestation statement: I reviewed the patient's lab results. Labs: Lab Results 04/23/23 04/23/23 Range/Units 02:04 02:05 Urine Color [place] A Urine Appearance Cloudy Urine pH 5.5 (5.0-9.0) Ur Specific [place] 1.025 (1.005-1.025) Urine Protein 30 (1+) H (Neg-Trace) mg/dL Urine Glucose (UA) Negative (Negative) mg/dL Urine Ketones Trace (Negative) mg/dL Urine Blood Large (3+) H (Negative) Urine Nitrite Negative (Negative) Ur Leukocyte Esterase Small (1+) H (Negative) Urine RBC 0-2 (0-2) /HPF Urine WBC 6-10 H (0-5) /HPF Ur Squamous Epith Cells >20 (0-2) /HPF Urine Bacteria 4+ (None Seen) Hyaline Casts 0-2 (0-2) /LPF Urine Test NEGATIVE (NEGATIVE) COVID-19 (JERO) Negative (Negative) COVID-19 Clin Com See Note Influenza Type A (HO) Positive A (Negative) Influenza Type B (HO) Negative (Negative) Influenza A & B Note See Note Independent Interpretation I performed an independent interpretation of an: Plain X-Ray Radiology Impression Discussion of test interpretation with radiology: I have reviewed the radiologist's reading. Discharge Plan Discharge Clinical Impression: Influenza A Patient Disposition: Home, Self-Care Instructions: Influenza (ED) Additional Instructions: Drink plenty of fluids Tylenol/Motrin for fever body aches Cough drops as prescribed Follow with PCP as needed Prescriptions: New codeine-guaifenesin 10-100 mg/5 mL liquid 10 ml PO Q6H PRN (Reason: cough) Qty: 237 0RF ibuprofen 600 mg tablet 600 mg PO Q6H PRN (Reason: fever or pain) Qty: 30 0RF No Action cyproheptadine 4 mg Tablet 4 mg PO DAILY multivitamin [Daily-Devante] Tablet 1 tab PO DAILY levofloxacin 750 mg tablet 750 mg PO DAILY 14 Days Qty: 14 0RF azithromycin [Zithromax Z-Bakari] 250 mg tablet See Rx Instructions .ROUTE .COMPLEX Qty: 6 0RF Rx Instructions: For 250 mg dose pack: take 500 mg today (day 1), then 250 mg for 4 days (days 2-5) Interventions: ED Discharge Assessment Last Done: 04/23/23 05:37 Discharge Date/Time: 04/23/23 05:38
[2023-04-23] MEDS: guaiFEN/Codeine SF 200/20/10ML 10 ML LIQUID PO (05:22)
== END 2023-04-23 05:38 | disposition home or self-care (01) ==
PROVIDERS: Emergency Provider Internal Medicine
DX: J10.1 Influenza due to other identified influenza virus with other respiratory manifestations (principal); R10.30 Lower abdominal pain, unspecified; Z11.52 Encounter for screening for COVID-19
CPT/HCPCS: 71046; 81001; 81025; 87086; 87502; 87635; 99283